=== PATIENT | male | born 1980 | race Caucasian/White ===

== ENCOUNTER 2023-03-05 08:25 | Emergency (ER) | payer OTHER, SELFPAY ==
[2023-03-05 08:43] VITALS: BP 137/85; PULSE 95; RESP 20; TEMP 36.8; O2SAT 99
--- NOTE | 2023-03-05 08:50 | ED.URI ---
HPI - URI/Sore Throat General Chief Complaint: Upper Respiratory Infection Stated Complaint: fever,headache,cough Source: patient and RN notes reviewed History of Present Illness HPI Narrative: 42 yo M presents to urgent care with complaints of sinus pressure and congestion x 2 weeks. Pt reports a sore throat, bilateral ear fullness, and anterior neck soreness. Pt states he began running a fever of 102 F. Pt states his fever resolved within 24 hours but today woke up feeling poorly. Denies any vomiting, diarrhea, chest pain, or SOB. Pt has been using a nasal spray and took Tylenol for his fever. Related Data Allergies Allergy/AdvReac Type Severity Reaction Status Date / Time No Known Allergies Allergy Verified 03/05/23 08:40 Review of Systems Review of Systems: Pertinent positives and pertinent negatives per HPI. PMFSH Comments At the time of my signature, I reviewed and agree with the nursing past medical, surgical, social, and family history. There is no relevant family history pertinent to the patient complaint. Exam Narrative: GENERAL: This is a well-nourished, well-developed patient, in no apparent distress. HEAD: normocephalic, atraumatic. EYES:Sclera clear/white. Vision is grossly intact. EARS: External ears normal, auditory canals clear and without drainage, TMs normal without perforation. Hearing grossly intact. NOSE: External nose normal with no obvious nasal discharge, nares without redness, no rhinorrhea. THROAT: Mucous membranes moist, posterior pharynx Erythemic NECK: Neck supple, non-tender without lymphadenopathy, masses or thyromegaly. CARDIOVASCULAR: Regular rate and rhythm without murmurs, gallops, or rubs. RESPIRATORY: Clear to auscultation. Breath sounds equal bilaterally. No wheezes, rales, or rhonchi. SKIN: warm, intact with no suspicious lesions or rash, good texture and turgor. NEURO: awake, alert, and oriented to person, place and time. There were no obvious focal neurologic abnormalities. Course Course Level of Care: Express Care Visit Vital Signs Vital signs: Vital Signs Temperature 98.3 F 03/05/23 08:43 Pulse Rate 95 03/05/23 08:43 Respiratory Rate 20 03/05/23 08:43 Blood Pressure 137/85 03/05/23 08:43 Pulse Oximetry 99 03/05/23 08:43 Oxygen Delivery Room Air 03/05/23 08:43 Temperature 98.3 F 03/05/23 08:43 Pulse Rate 95 03/05/23 08:43 Respiratory Rate 20 03/05/23 08:43 Blood Pressure 137/85 03/05/23 08:43 Pulse Oximetry 99 03/05/23 08:43 Oxygen Delivery Room Air 03/05/23 08:43 reviewed MDM - URI/Sore Throat MDM Narrative Medical decision making narrative: Patient will be treated with antibiotics for sinusitis. Patient is requesting a strep test and COVID test b/c his son is scheduled for hernia surgery this week and he would like to be sure of his illness. Go to the ER for any new or worsening symptoms. Avoid smoking/second-hand smoke. Continue to take Tylenol or Motrin for pain. Increase your Vitamin C intake. Use a humidifier or vaporizer at night. Take Medications as prescribed. Drink plenty of water. 8-10 glasses per day. Use flonase 2 times per day for 5 days then as needed Take mucinex 2 times per day and be sure to take with 8oz of water. Follow up with Primary provider if not getting better. After 24 hours on antibiotics throw tooth brush away and start using a new one. Increase your Vitamin C. Do not share drinks. Take Motrin alternating with Tylenol for pain and/or fever alternating every 4 hours. Increase fluids, avoid caffeine. Take a probiotic daily or eat a low sugar yogurt while taking the antibiotic. Follow up with Primary provider if not getting better this week Differential Diagnosis Differential diagnosis: Likely upper respiratory infection, sinusitis, viral infection and pharyngitis Lab Data Attestation: I reviewed the patient's lab results. Labs: Strep Screen
== END 2023-03-05 09:33 | disposition home or self-care (01) ==
PROVIDERS: Emergency Provider Nurse Practitioner Family; PCP Family Medicine
DX: J01.10 Acute frontal sinusitis, unspecified (principal); J02.0 Streptococcal pharyngitis; Z20.822 Contact with and (suspected) exposure to COVID-19
CPT/HCPCS: 87426; 87880; 99213; C9803; G0463